=== PATIENT | female | born 1960 | race Caucasian/White ===

== ENCOUNTER 2019-07-08 17:56 | Emergency (ER) | payer OTHER ==
[~2019-07-08] VITALS: Ht 125.7 cm; Wt 68.2 kg
[~2019-07-08 17:56] MED LIST: ALDACTONE100 MG PO; ALDACTONE50 MG PO; CHRONULAC30 ML PO; GLUCOPHAGE500 MG PO; HYDROCODON-ACE1 EAC7 PO; LASIX20 MG PO; LEVEMIR100 U/M1 SC; LEVEMIR100 U/M1 SQ; VENTOLIN HFA18 GM INH
[2019-07-08 18:05] VITALS: Ht 125.7 cm; Wt 68.2 kg
[2019-07-08] MEDS ORDERED: ZOFRAN ODT4 MG/UDTAB PO (19:39)
[2019-07-08] MEDS ORDERED: VOLTAREN75 MG PO (19:39)
[2019-07-08] MEDS ORDERED: BACLOFEN20 M1 PO (19:39)
[2019-07-08 19:46] LABS: APPEARANCE CLEAR (CLEAR); COLOR YELLOW (YELLOW); SPECIFIC GRAVITY 1.025 (1.005-1.020)
[2019-07-08 19:47] LABS: BILIRUBIN NEGATIVE (NEGATIVE); GLUCOSE NEGATIVE (NEGATIVE); KETONE NEGATIVE (NEGATIVE); NITRITE NEGATIVE (NEGATIVE); PROTEIN NEGATIVE (NEGATIVE); UROBILINOGEN NORMAL (NORMAL)
[2019-07-08 19:51] LABS: BASOPHILS 0.3 % (0-2); HEMATOCRIT 38.1 % (36.0-48.0); HEMOGLOBIN 12.8 g/dL (12-16); LYMPHOCYTES 33.6 % (15-50); MCH 29.8 pg (26.0-34.0); MCHC 33.6 g/dL (31.0-37.0); MCV 88.8 fL (80.0-100.0); MEAN PLATELET VOLUME 9.9 fL (7.4-10.4); MONOCYTES 8.8 % (2-11); NEUTROPHILS 56.3 % (40-80); PLATELET COUNT 133 10x3/uL (130-400); RBC 4.29 10x6/uL (4.00-5.40); RDW 12.6 % (11.5-14.5)
[2019-07-08 20:04] LABS: ANION GAP 11.2 mmol/L (8-16); CALCIUM 9.6 mg/dL (8.5-10.1); CARBON DIOXIDE 29.9 mmol/L (21.0-32.0); CREATININE - SERUM 1.1 mg/dL (0.6-1.3); POTASSIUM - SERUM 4.1 mmol/L (3.5-5.1)
[2019-07-08 20:10] LABS: ALBUMIN 3.9 g/dL (3.4-5.0); BILIRUBIN - TOTAL 0.4 mg/dL (0.2-1.3); PROTEIN - SERUM 7.3 g/dL (6.4-8.2)
[2019-07-08 20:55] VITALS: BP 108/69
== END 2019-07-08 20:25 | disposition home or self-care (01) ==
LOC: D.ER 17:56
PROVIDERS: Emergency Medicine
DX: R07.89 Other chest pain (principal); R10.9 Unspecified abdominal pain; E11.9 Type 2 diabetes mellitus without complications; Z79.84 Long term (current) use of oral hypoglycemic drugs; Z79.4 Long term (current) use of insulin; J44.9 Chronic obstructive pulmonary disease, unspecified